=== PATIENT | male | born 1960 | race Caucasian/White ===

== ENCOUNTER 2017-03-02 14:35 | Inpatient (IN) | payer OTHER ==
[~2017-03-02] VITALS: Ht 185.4 cm; Wt 108.7 kg
[2017-03-02 15:22] LABS: MCH 30.6 PG (29.0-34.0); MCHC 34.2 G/DL (30.0-36.0); MCV 89.6 FL (86-99); MEAN PLAT.VOLUME 10.9 uM^3 (9.0-12.4); PLATELET COUNT 151 K/uL (156-360); RBC DIS.WIDTH-CV 13.4 % (11.8-14.6); RED BLOOD COUNT 5.36 M/uL (4.00-5.50); WHITE BLOOD COUNT 11.1 K/uL (4.1-10.2)
[2017-03-02 15:30] LABS: CHLORIDE 103 mEq/L (99-109); POTASSIUM 3.8 mEq/L (3.7-5.4); SODIUM 139 mEq/L (136-147)
[2017-03-02 15:33] LABS: GLUCOSE 178 mg/dL (70-99)
[2017-03-02 15:34] LABS: ANION GAP 11 MEQ/L (2-14)
[2017-03-02 15:35] LABS: TOTAL BILIRUBIN 1.1 mg/dL (0.0-1.0)
[2017-03-02 15:36] LABS: ALKALINE PHOSPHATASE 132 IU/L (3-129); GFR ESTIMATE (CALCULATED) > 59 mL/min/ (58.99-99999)
[2017-03-02 15:37] LABS: UREA NITROGEN (BUN) 10 mg/dL (9-23)
[2017-03-02 15:40] LABS: LIPASE 14 U/L (1.0-51.0)
[2017-03-02 15:55] LABS: ADD MIUA? YES; BILIRUBIN NEGATIVE; BLOOD NEGATIVE; GLUCOSE (STRIP) NEGATIVE; KETONES NEGATIVE; LEUKOCYTES NEGATIVE; NITRITE NEGATIVE; PROTEIN (STRIP) 30; SPECIFIC GRAVITY 1.028 (1.000-1.030); UROBILINOGEN 0.2 MG/DL (0.2-1.0)
[2017-03-02 15:59] LABS: AMORPHOUS URATES CRYSTALS 4+; BACTERIA NONE SEEN /HPF; CASTS NONE SEEN /LPF; COLOR DK YELLOW ((YELLOW)); CRYSTALS PRESENT; EPITHELIAL CELLS NONE SEEN /HPF; MUCUS NONE SEEN /LPF; RED BLOOD CELLS NONE SEEN /HPF (0-5); UCUL ADDED? NO; WHITE BLOOD CELLS NONE SEEN /HPF (0-5)
[2017-03-02 18:11] LABS: INTER. NORMALIZED RATIO 1.2; PROTHROMBIN TIME 13.4 SEC (10.2-12.9)
[2017-03-02] MEDS ORDERED: GLIPIZIDE5 MG PO (18:19)
[2017-03-02] MEDS ORDERED: METFORMIN HCL500 MG PO (18:19)
[2017-03-02] MEDS ORDERED: IBUPROFEN200 M1 PO (18:22)
[2017-03-02] MEDS ORDERED: CORTIZONE-1028 GM TP (18:22)
[2017-03-02] MEDS ORDERED: ZOCOR20 MG PO (18:24)
[2017-03-02] MEDS ORDERED: CENTRUM MEN'S1 EACH PO (18:25)
[2017-03-02 21:16] VITALS: BP 142/92
[2017-03-03 00:07] VITALS: BP 141/89
[2017-03-03 00:16] LABS: POINT-OF-CARE METER ID UU13113774
[2017-03-03 05:53] LABS: POINT-OF-CARE METER ID UU13113774
[2017-03-03 06:42] LABS: ALKALINE PHOSPHATASE 93 IU/L (3-129); ANION GAP 8 MEQ/L (2-14); CHLORIDE 103 MEQ/L (99-109); GFR ESTIMATE (CALCULATED) > 59 mL/min/ (58.99-99999); GLUCOSE 205 mg/dL (70-99); POTASSIUM 4.1 MEQ/L (3.7-5.4); SAMPLE HEMOLYSIS CHECK 0; SAMPLE ICTERIC CHECK 0; SAMPLE LIPEMIA CHECK 0; SODIUM 138 MEQ/L (136-147); UREA NITROGEN (BUN) 11 mg/dL (9-23)
[2017-03-03 07:44] LABS: Estimated Average Glucose 169 mg/dL (70-123); HEMOGLOBIN A1c (GLYCOHEMOGLOB) 7.5 % HGB (Below 5.7)
[2017-03-03 07:51] VITALS: BP 132/86
[2017-03-03 11:13] LABS: HEMATOCRIT 43.7 % (38.0-50.0); MCH 30.5 PG (29.0-34.0); MCHC 33.6 G/DL (30.0-36.0); MCV 90.7 FL (86-99); MEAN PLAT.VOLUME 11.4 uM^3 (9.0-12.4); PLATELET COUNT 140 K/uL (156-360); RBC DIS.WIDTH-CV 13.7 % (11.8-14.6); RBC DIS.WIDTH-SD 45.8 % (39-53); RED BLOOD COUNT 4.82 M/uL (4.00-5.50); WHITE BLOOD COUNT 11.2 K/uL (4.1-10.2)
[2017-03-03 11:36] LABS: POINT-OF-CARE METER ID UU13113774
[2017-03-03 14:30] VITALS: BP 170/93
[2017-03-03 18:13] LABS: POINT-OF-CARE METER ID UU13113675; POINT-OF-CARE USER ID 515036437
[2017-03-03 21:36] VITALS: BP 124/75
[2017-03-03 23:27] VITALS: BP 118/72
[2017-03-03 23:34] VITALS: BP 118/72
[2017-03-04] VITALS (14 sets, daily range): BP systolic 72–122; BP diastolic 43–83
[2017-03-04 00:09] LABS: POINT-OF-CARE METER ID UU13113725
[2017-03-04 05:57] LABS: POINT-OF-CARE METER ID UU13113774
[2017-03-04 06:22] LABS: HEMATOCRIT 47.9 % (38.0-50.0); MCH 29.7 PG (29.0-34.0); MCHC 32.2 G/DL (30.0-36.0); MCV 92.3 FL (86-99); RBC DIS.WIDTH-CV 14.1 % (11.8-14.6); RBC DIS.WIDTH-SD 48.2 % (39-53); RED BLOOD COUNT 5.19 M/uL (4.00-5.50)
[2017-03-04 06:23] LABS: EOSINOPHIL (%) 0.2 % (0-5); IMMATURE GRANULOCYTE (%) 0.4 % (0.0-0.7); IMMATURE GRANULOCYTE COUNT 0.1 K/uL; INSTRUMENT ABS NEUTROPHIL CT 11.4 K/uL; LYMPHOCYTE COUNT 0.7 K/uL (1.0-2.8); MEAN PLAT.VOLUME 11.3 uM^3 (9.0-12.4); MONOCYTE (%) 12.4 % (3-12); MONOCYTE COUNT 1.7 K/uL (0-0.8); NEUTROPHIL (%) 81.5 % (45-76); NEUTROPHIL COUNT 11.4 K/uL (1.8-6.4)
[2017-03-04 06:33] LABS: PLATELET COUNT 228 K/uL (156-360)
[2017-03-04 06:52] LABS: ALKALINE PHOSPHATASE 77 IU/L (3-129); ANION GAP 12 MEQ/L (2-14); CHLORIDE 104 MEQ/L (99-109); GLUCOSE 245 mg/dL (70-99); SAMPLE HEMOLYSIS CHECK 0; SAMPLE ICTERIC CHECK 0; SAMPLE LIPEMIA CHECK 0; SODIUM 140 MEQ/L (136-147); TOTAL BILIRUBIN 1.1 MG/DL (0.0-1.0)
[2017-03-04 06:54] LABS: GFR ESTIMATE (CALCULATED) 37 mL/min/ (58.99-99999); UREA NITROGEN (BUN) 21 mg/dL (9-23)
[2017-03-04 12:48] LABS: POINT-OF-CARE METER ID UU13113725
[2017-03-04 18:02] LABS: POINT-OF-CARE METER ID UU13113725
[2017-03-04 23:41] LABS: POINT-OF-CARE METER ID UU13113774
[2017-03-05 00:17] LABS: POINT-OF-CARE METER ID UU13113725
[2017-03-05 05:07] LABS: POINT-OF-CARE METER ID UU13113774
[2017-03-05 05:36] VITALS: BP 134/67
[2017-03-05 06:00] LABS: HEMATOCRIT 38.4 % (38.0-50.0); MCH 30.6 PG (29.0-34.0); MCHC 32.3 G/DL (30.0-36.0); MCV 94.8 FL (86-99); RBC DIS.WIDTH-CV 14.4 % (11.8-14.6); RBC DIS.WIDTH-SD 50.4 % (39-53); WHITE BLOOD COUNT 9.7 K/uL (4.1-10.2)
[2017-03-05 06:01] LABS: RED BLOOD COUNT 4.05 M/uL (4.00-5.50)
[2017-03-05 06:20] LABS: ANION GAP 6 MEQ/L (2-14); CHLORIDE 109 MEQ/L (99-109); GFR ESTIMATE (CALCULATED) > 59 mL/min/ (58.99-99999); GLUCOSE 199 mg/dL (70-99); POTASSIUM 4.1 MEQ/L (3.7-5.4); SAMPLE HEMOLYSIS CHECK 0; SAMPLE ICTERIC CHECK 0; SAMPLE LIPEMIA CHECK 0; SODIUM 142 MEQ/L (136-147); UREA NITROGEN (BUN) 29 mg/dL (9-23)
[2017-03-05 06:29] LABS: MEAN PLAT.VOLUME 10.9 uM^3 (9.0-12.4); PLAT.SUFFICIENCY DECREASED; PLATELET COUNT 114 K/uL (156-360)
[2017-03-05 06:42] VITALS: BP 120/71
[2017-03-05 11:23] VITALS: BP 140/78
[2017-03-05 11:40] LABS: POINT-OF-CARE METER ID UU13113774
[2017-03-05 15:05] VITALS: BP 141/75
[2017-03-05 18:07] LABS: POINT-OF-CARE METER ID UU14302474
[2017-03-05 19:24] VITALS: BP 140/70
[2017-03-05 23:57] LABS: POINT-OF-CARE METER ID UU14302474
[2017-03-06 00:02] VITALS: BP 120/65
[2017-03-06 05:46] VITALS: BP 132/68
[2017-03-06 06:05] LABS: POINT-OF-CARE METER ID UU14302474
[2017-03-06 07:27] VITALS: BP 140/78
[2017-03-06 12:50] LABS: POINT-OF-CARE METER ID UU14302474
[2017-03-06 17:51] LABS: POINT-OF-CARE METER ID UU14302474
[2017-03-06 19:45] VITALS: BP 159/81
[2017-03-06 23:02] VITALS: BP 156/84
[2017-03-07 00:23] LABS: POINT-OF-CARE METER ID UU14302474
[2017-03-07 06:13] LABS: HEMATOCRIT 37.1 % (38.0-50.0); MCH 30.5 PG (29.0-34.0); MCHC 32.9 G/DL (30.0-36.0); MCV 92.8 FL (86-99); PLATELET COUNT 137 K/uL (156-360); RBC DIS.WIDTH-CV 13.2 % (11.8-14.6); WHITE BLOOD COUNT 8.4 K/uL (4.1-10.2)
[2017-03-07 06:45] LABS: ANION GAP 7 MEQ/L (2-14); CHLORIDE 104 MEQ/L (99-109); GFR ESTIMATE (CALCULATED) > 59 mL/min/ (58.99-99999); GLUCOSE 161 mg/dL (70-99); POTASSIUM 4.1 MEQ/L (3.7-5.4); SAMPLE HEMOLYSIS CHECK 2; SAMPLE ICTERIC CHECK 0; SAMPLE LIPEMIA CHECK 0; SODIUM 139 MEQ/L (136-147); UREA NITROGEN (BUN) 15 mg/dL (9-23)
[2017-03-07 07:13] VITALS: BP 147/87
[2017-03-07 11:43] VITALS: BP 139/84
[2017-03-07] MEDS ORDERED: HYDROCODON-ACE1 EAC7 PO (11:59)
[2017-03-07 16:38] VITALS: BP 140/84
[2017-03-07 17:39] LABS: POINT-OF-CARE METER ID UU13113725
[2017-03-07 22:48] VITALS: BP 136/85
[2017-03-08 00:03] LABS: POINT-OF-CARE METER ID UU13113725
[2017-03-08 05:34] LABS: POINT-OF-CARE METER ID UU13113725
[2017-03-08 05:49] LABS: HEMATOCRIT 36.9 % (38.0-50.0); MCH 30.9 PG (29.0-34.0); MCHC 33.9 G/DL (30.0-36.0); MCV 91.3 FL (86-99); MEAN PLAT.VOLUME 10.3 uM^3 (9.0-12.4); PLATELET COUNT 138 K/uL (156-360); RBC DIS.WIDTH-SD 43.8 % (39-53); RED BLOOD COUNT 4.04 M/uL (4.00-5.50); WHITE BLOOD COUNT 7.9 K/uL (4.1-10.2)
[2017-03-08 06:13] LABS: ANION GAP 8 MEQ/L (2-14); CHLORIDE 102 MEQ/L (99-109); GFR ESTIMATE (CALCULATED) > 59 mL/min/ (58.99-99999); GLUCOSE 160 mg/dL (70-99); POTASSIUM 3.5 MEQ/L (3.7-5.4); SAMPLE HEMOLYSIS CHECK 0; SAMPLE ICTERIC CHECK 0; SAMPLE LIPEMIA CHECK 0; SODIUM 137 MEQ/L (136-147); UREA NITROGEN (BUN) 13 mg/dL (9-23)
[2017-03-08 07:35] VITALS: BP 145/89
[2017-03-08 10:51] LABS: POINT-OF-CARE METER ID UU13113774
== END 2017-03-08 13:57 | disposition home or self-care (01) | DRG 336 ==
LOC: EME 14:35 → 5EAST 18:43 → EDOF 18:43 → ENRESERV 18:51 → 5EAST 20:34
PROVIDERS: Emergency Medicine; Physician Assistant; Physician Assistant Surgical; Surgery
DX: K91.30 Postprocedural intestinal obstruction, unspecified as to partial versus complete (principal); K76.6 Portal hypertension; R18.8 Other ascites; E86.0 Dehydration; K74.60 Unspecified cirrhosis of liver; R50.82 Postprocedural fever; K43.2 Incisional hernia without obstruction or gangrene; D72.829 Elevated white blood cell count, unspecified; I10 Essential (primary) hypertension; E78.5 Hyperlipidemia, unspecified; G47.33 Obstructive sleep apnea (adult) (pediatric); E11.9 Type 2 diabetes mellitus without complications; E66.9 Obesity, unspecified; Z68.31 Body mass index [BMI] 31.0-31.9, adult; Z79.84 Long term (current) use of oral hypoglycemic drugs; Z86.010 Personal history of colon polyps; Z88.0 Allergy status to penicillin; Q76.0 Spina bifida occulta
CPT/HCPCS: 71010; 74000; 74020; 74177; 80048; 80053; 80069; 81003; 82948; 83036; 83605; 83690; 85025; 85027; 85610; 87040; 90686; 94799; 99281; 99285; J1170; J1335; J1650; J1815; J2270; J2405; J2710; J3010; J7030; J7040; J7120

== ENCOUNTER 2017-04-27 11:46 | Emergency (ER) | payer BC ==
[~2017-04-27] VITALS: Ht 185.4 cm; Wt 101.1 kg
[~2017-04-27 11:46] MED LIST: CENTRUM MEN'S1 EACH PO; CORTIZONE-1028 GM TP; GLIPIZIDE5 MG PO; HYDROCODON-ACE1 EAC7 PO; IBUPROFEN200 M1 PO; METFORMIN HCL500 MG PO; ZOCOR20 MG PO
[2017-04-27 13:11] LABS: BASOPHIL (%) 0.5 % (0-1); EOSINOPHIL (%) 2.3 % (0-5); EOSINOPHIL COUNT 0.2 K/uL (0-0.3); HEMATOCRIT 41.6 % (38.0-50.0); HEMOGLOBIN 14.5 G/DL (12.5-16.6); IMMATURE GRANULOCYTE (%) 0.3 % (0.0-0.7); LYMPHOCYTE (%) 27.1 % (15-42); LYMPHOCYTE COUNT 1.8 K/uL (1.0-2.8); MCH 30.6 PG (29.0-34.0); MCHC 34.9 G/DL (30.0-36.0); MCV 87.8 FL (86-99); MONOCYTE (%) 9.2 % (3-12); MONOCYTE COUNT 0.6 K/uL (0-0.8); NEUTROPHIL (%) 60.6 % (45-76); PLATELET COUNT 118 K/uL (156-360); RBC DIS.WIDTH-CV 13.2 % (11.8-14.6); RBC DIS.WIDTH-SD 42.8 % (39-53); RED BLOOD COUNT 4.74 M/uL (4.00-5.50); WHITE BLOOD COUNT 6.5 K/uL (4.1-10.2)
[2017-04-27 13:19] LABS: CHLORIDE 103 mEq/L (99-109); POTASSIUM 3.8 mEq/L (3.7-5.4); SODIUM 137 mEq/L (136-147)
[2017-04-27 13:21] LABS: GLUCOSE 138 mg/dL (70-99)
[2017-04-27 13:25] LABS: CREATININE 0.7 mg/dL (0.6-1.3); GFR ESTIMATE (CALCULATED) > 59 mL/min/ (58.99-99999)
[2017-04-27 13:26] LABS: UREA NITROGEN (BUN) 12 mg/dL (9-23)
[2017-04-27 15:45] VITALS: BP 141/85
== END 2017-04-27 16:02 | disposition home or self-care (01) ==
LOC: EME 11:46
PROVIDERS: Emergency Medicine
DX: R20.2 Paresthesia of skin (principal); R10.30 Lower abdominal pain, unspecified; E11.9 Type 2 diabetes mellitus without complications; Z79.84 Long term (current) use of oral hypoglycemic drugs; Z88.0 Allergy status to penicillin
CPT/HCPCS: 74177; 80048; 85025; 99281; 99285